=== PATIENT | female | born 1985 | race Hispanic/Latino ===

== ENCOUNTER 2019-09-23 18:42 | Emergency (ER) | payer SELFPAY ==
[2019-09-23 18:44] VITALS: BP 147/83; PULSE 82; RESP 19; TEMP 37; O2SAT 97; BMI 36.5
[2019-09-23] MEDS: 0.9% Normal Saline 1,000 ML 1000 ML IV (19:59)
[2019-09-23] MEDS: Ondansetron 4 MG/2 ML Vial IV (20:00)
[2019-09-23] MEDS: Ketorolac 30 MG/ML Syringe IV (20:01)
[2019-09-23 20:05] LABS: Internal QC Validated? YES +Cl - CLEAR BKGD; Pregnancy, Serum, hCG Quali. NEGATIVE Negative
[2019-09-23 20:12] LABS: Bacteria 0 SEEN /hpf (None Seen); Mucous, Urine 0 SEEN /hpf (<or=2+); Red Blood Cells-Urine 0 SEEN /hpf (0-5); White Blood Cells 0 SEEN /hpf (0-5)
--- NOTE | 2019-09-23 20:12 | RAD_ITS ---
STUDY: X-RAY CHEST REASON FOR EXAM: Female, 34 years old. COUGH TECHNIQUE: PA and lateral chest. COMPARISON: None. FINDINGS: The lungs are clear and expanded. There is no demonstrated pleural abnormality. Normal size heart. Normal mediastinum and myles. Normal visualized pulmonary arteries. Normal visualized aortic arch and descending thoracic aorta. Normal visualized thoracic spine. Normal visualized ribs, clavicles, and shoulders. There is no demonstrated abnormality of the visualized soft tissue structures of the upper abdomen. RAD/Chest PA and Lateral IMPRESSION: Normal x-ray examination of the chest. Electronically Signed: Brandy Scott MD at 20:38 EST Tel , Service support ,
[2019-09-23 20:28] LABS: Color, Urine Yellow (Yellow); Glucose, Dipstick Normal (Normal); Ketone-Dipstick Negative (Negative); Leukocyte Esterase-Dipstick Negative /ul (Negative); Nitrite-Dipstick Negative (Negative); Occult Blood-Urine Negative /ul (Negative); Protein-Dipstick Negative (Negative); Specific Gravity, Urine 1.025 (1.002-1.030); Urine Bilirubin Dipstick Negative (Negative); Urine Clarity Sl. Cloudy (Clear); Urine Urobilinogen Normal (Normal)
[2019-09-23 20:34] LABS: Amorphous Sediment 1+ URATE; Squamous Epithelial Cells - UA 5-10 SEEN /hpf (5-10)
--- NOTE | 2019-09-23 20:37 | ED.DCSUM_ITS ---
- ER Visit Summary Date of Service: 09/23/19 Chief Complaint: Cough History of Present Illness: The patient is a 34 F with no primary care physician. She reports she has a cough that began 2 days ago. Is productive yellow sputum without blood. She has had subjective fever, chills, cold sweats. She reports that she has a sore throat is 10 on 10 severity. Bilateral ear pain is 10 on 10 severity. Headache is 10 out of 10 severity. Back pain is 10 out of 10 in severity. As well as dysuria and frequency. Physical Examination: Vitals: Stable. Afebrile. General: Well-nourished and well-developed. Head: Normocephalic atraumatic. HEENT: Serous effusion behind her TMs bilaterally. No evidence of a purulent otitis media. Pharyngeal erythema. No tonsillar exudate or enlargement. Neck: Supple, no lymphadenopathy. No JVD. Nontender. Cardiovascular: Regular rate and rhythm. No murmurs. Respiratory: No respiratory distress. Clear to auscultation bilaterally. Abdominal: Soft, nontender, nondistended, normal bowel sounds. No guarding, rebound, or peritoneal signs. Back: Nontender. Extremities: Nontender, no edema. Skin: Normal color, no rash. Neurologic: Alert and oriented ?3. Cranial nerves II through XII are intact. Normal strength and sensation. Psych: Normal affect. Test Results: UA is normal. test is negative. She is positive for flu B. Chest x-ray is normal. Emergency Department Course and Treatment: Patient had an IV placed. She was given a liter of normal saline. She is given Toradol and Zofran IV. She is resting more comfortably. Treatment Plan: Patient be discharged instructions to follow-up Dr. Villa in 1 week if not improving. She is instructed on symptomatic management. Return to the emergency department for any worsening symptoms. Disposition: To home in improved and stable condition. Impression: 1 1. Influenza B. This note was generated with [employer] software. It may contain incorrect words, spelling, and punctuation that were not noted in review of the chart prior to signing ED Disposition - Plan for ED Patient: Instructions: INFLUENZA (Adult) Referrals: Alix Villa MD [COURTESY STAFF PHYSICIAN] - 1 Week if not improving
== END 2019-09-23 20:53 | disposition home or self-care (01) ==
PROVIDERS: Emergency Provider Emergency Medicine
DX: J10.1 Influenza due to other identified influenza virus with other respiratory manifestations (principal); I10 Essential (primary) hypertension; Z72.0 Tobacco use
CPT/HCPCS: 71046; 81001; 84703; 87804; 96361; 96374; 96375; 99283; J7030; J2405